=== PATIENT | male | born 1965 | race Two or more races ===

== ENCOUNTER 2020-05-23 09:24 | Emergency (ER) | payer OTHER ==
[~2020-05-23] VITALS: Ht 170.2 cm; Wt 54.4 kg
[~2020-05-23 09:24] MED LIST: BACITRACIN15 GM TOPIC; CEPHALEXIN500 MG ORAL; OCUFLOX5 ML OP
[2020-05-23 09:45] VITALS: BP 134/88
--- NOTE | 2020-05-23 09:57 | Emergency Room Report ---
History of Present Illness General Chief Complaint: Wound Recheck/Suture Removal Source: Patient Present Illness HPI The patient scraped his anterior tibia on April 26. He has been utilizing local care. His primary physician advised him to return to the emergency department for reevaluation. The patient denies any fevers or chills. The pain is decreased. There is no redness in the area. Allergies: Coded Allergies: No Known Allergies (Unverified , 10/03/14) COVID-19 Screening Contact w/high risk pt: No Experienced COVID-19 symptoms?: No COVID-19 Testing performed CUSHION BUILDER: No Patient History Past Medical History: see triage record Social History: Denies: smoking, alcohol use, drug use Social History Narrative From home Reviewed Nursing Documentation: PMH: Agreed; PSxH: Agreed Nursing Documentation-PMH Past Medical History: No History, Except For Review of Systems Constitutional: Denies: fever Musculoskeletal: Reports: see HPI Skin: Reports: see HPI Hematologic/Lymphatic: Denies: easy bleeding Physical Exam Vital Signs Date Time Temp Pulse Resp B/P (MAP) Pulse Ox O2 Delivery O2 Flow Rate FiO2 05/23/20 09:32 98.2 96 17 134/88 (103) 98 Room Air Sp02 EP Interpretation: reviewed, normal General Appearance: well appearing, no apparent distress, GCS 15 Head: normocephalic Eyes: bilateral eye normal inspection, bilateral eye PERRL ENT: other Neck: full range of motion, supple Respiratory: normal inspection Cardiovascular #1: regular rate, rhythm Cardiovascular #2: 2+ radial (R), 2+ dorsalis pedis (R) Gastrointestinal: normal inspection Musculoskeletal: gait/station normal, no calf tenderness, moves extm spontaneously Neurologic: alert, grossly normal Psychiatric: mood/affect normal Skin: normal color, wd healing/no infection noted - Right anterior tibia Medical Decision Making Diagnostic Impression: Primary Impression: Encounter for wound re-check ER Course Patient presents for wound recheck right anterior tibia. The wound appears noninfected and healing well. The patient denies any fevers or chills. Advised the patient to continue local wound care. Last Vital Signs Date Time Temp Pulse Resp B/P (MAP) Pulse Ox O2 Delivery O2 Flow Rate FiO2 05/23/20 10:19 98.2 17 134/88 98 Room Air 05/23/20 09:32 96 Status: unchanged Disposition: HOME, SELF-CARE Condition: Stable Rivas Maya MD May 23, 2020 09:57
[2020-05-23] MEDS ORDERED: Bacitracin Oint UD TOPIC ONE (10:00)
[2020-05-23 10:19] VITALS: BP 134/88
== END 2020-05-23 10:19 | disposition home or self-care (01) ==
LOC: EMR 10:08
DX: Z09 Encounter for follow-up examination after completed treatment for conditions other than malignant neoplasm (principal); S80.11XD Contusion of right lower leg, subsequent encounter; X58.XXXD Exposure to other specified factors, subsequent encounter
CPT/HCPCS: 99281